=== PATIENT | female | born 1935 | race Caucasian/White ===

== ENCOUNTER 2018-10-29 08:27 | Inpatient (IN) | payer MEDICARE, OTHER ==
[~2018-10-29] VITALS: Ht 157.5 cm; Wt 54.0 kg
[2018-10-29] MEDS ORDERED: normal saline 1000ML IV soln IVB ONE (08:30)
--- NOTE | 2018-10-29 08:58 | NUR ---
PATIENT STATES SHE HAS MANY ANTIBIOTIC ALLERGIES BUT DOES NOT KNOW THE NAMES OF ANY OF THEM.
[2018-10-29 09:28] LABS: BASOPHILS % (AUTO) 0.3 % (0-1); EOSINOPHILS % (AUTO) 0 % (0-6); HEMATOCRIT 36.2 % (35.0-45.0); HEMOGLOBIN 11.8 g/dl (12.0-16.0); LYMPHOCYTES # (AUTO) 0.4 X10'3 (1.1-4.8); LYMPHOCYTES % (AUTO) 3.7 % (21-51); MEAN CORPUSCULAR HEMOGLOBIN 27.6 PG (27.0-31.0); MEAN CORPUSCULAR HGB CONC 32.6 g/dL (33.0-36.5); MEAN CORPUSCULAR VOLUME 84.6 FL (78-98); MEAN PLATELET VOLUME 7.5 FL (7.4-10.4); MONOCYTES # (AUTO) 0.2 X10'3 (0-0.9); MONOCYTES % (AUTO) 1.7 % (2-12); NEUTROPHILS # (AUTO) 10.9 X10'3 (1.8-7.7); NEUTROPHILS % (AUTO) 94.3 % (42-75); PLATELET COUNT 204 X10'3 (140-440); RED BLOOD COUNT 4.27 X10'6 (4.20-5.60); RED CELL DISTRIBUTION WIDTH 13.5 % (11.5-14.5); WHITE BLOOD COUNT 11.5 X10'3 (4.5-11.0)
[2018-10-29 09:43] LABS: ALANINE AMINOTRANSFERASE 14 U/L (12-78); ALBUMIN 2.5 G/DL (3.4-5.0); ALBUMIN/GLOBULIN RATIO 0.8 (1.1-1.5); ALKALINE PHOSPHATASE 52 IU/L (46-116); ANION GAP 7 (8-16); ASPARTATE AMINO TRANSFERASE 12 U/L (10-37); BILIRUBIN,TOTAL 0.2 MG/DL (0.1-1.0); BLOOD UREA NITROGEN 46 MG/DL (7-18); BUN/CREATININE RATIO 32.9 (6.6-38.0); CALCIUM 8.1 MG/DL (8.5-10.1); CHLORIDE 108 MMOL/L (99-107); GLUCOSE 163 MG/DL (70-104); POTASSIUM 4.4 MMOL/L (3.5-5.1); SODIUM 139 MMOL/L (135-145); TOTAL CARBON DIOXIDE 24.5 MMOL/L (24-32); TOTAL PROTEIN 5.5 G/DL (6.4-8.2); eGFR 36 ML/MIN
[2018-10-29] MEDS ORDERED: piperacillin/tazo 3.375gm/50ml 50 ML IV ONE (10:20)
[2018-10-29] MEDS: HYDROcodone/acetaminophen 5mg/325mg tablet PO ONE ×2 (10:20→12:20)
--- NOTE | 2018-10-29 11:00 | NUR ---
pt allergies updated per pt pharmacy records. zosyn non-admined per dr georges.
--- NOTE | 2018-10-29 11:36 | NUR ---
PT REFUSES PAIN MEDS AT THIS TIME
[2018-10-29] MEDS ORDERED: LOSA25TA96 PO ×2 (11:48)
[2018-10-29] MEDS ORDERED: mag hydrox/Alum hydrox/simeth 30ml oral suspension PO PRN (11:50)
[2018-10-29] MEDS ORDERED: magnesium 2GM in 50ml NS 50 ML IV PRN (11:50)
[2018-10-29] MEDS ORDERED: acetaminophen 325mg tablet PO PRN (11:50)
[2018-10-29] MEDS ORDERED: magnesium Cl slow-release 64mg tablet PO PRN (11:50)
[2018-10-29] MEDS ORDERED: potassium Cl 20 mEq SR tablet PO PRN (11:50)
[2018-10-29] MEDS ORDERED: potassium Cl 40MEQ/NS 500ml 500 ML IV PRN ×2 (11:50)
[2018-10-29] MEDS ORDERED: ondansetron/PF 4mg/2ml inj IV PRN (11:50)
[2018-10-29] MEDS ORDERED: magnesium hydroxide 30ml (MOM) UD suspension PO PRN (11:50)
[2018-10-29] MEDS ORDERED: magnesium 4gm in 100ml NS 100 ML IV PRN (11:50)
[2018-10-29] MEDS ORDERED: PEG 3350/Na sulf,bicarb,Cl/KCl oral sol 4 liter bottle PO ONE (12:10)
[2018-10-29] MEDS: normal saline 1000ml 1,000 ML IV SCH (12:45)
[2018-10-29] MEDS ORDERED: HYDROcodone/acetaminophen 5mg/325mg tablet PO ONE (12:45)
[2018-10-29 12:51] LABS: OCCULT BLOOD STOOL POSITIVE (Neg)
--- NOTE | 2018-10-29 14:10 | NUR ---
Received report from Cheri PICKERING. Patient arrived to room 356B.
--- NOTE | 2018-10-29 15:07 | NUR ---
paged regarding high BP of 185/68. Awaiting call back.
[2018-10-29 15:41] VITALS: BP 185/68
[2018-10-29] MEDS ORDERED: pneumococcal 23-VAL P-sac vacc 25 mcg/0.5ml vial IMVAC ONE (16:00)
[2018-10-29 16:30] LABS: BASOPHILS % (AUTO) 0.1 % (0-1); EOSINOPHILS % (AUTO) 0 % (0-6); HEMATOCRIT 35.6 % (35.0-45.0); HEMOGLOBIN 11.6 g/dl (12.0-16.0); LYMPHOCYTES # (AUTO) 0.7 X10'3 (1.1-4.8); LYMPHOCYTES % (AUTO) 6.3 % (21-51); MEAN CORPUSCULAR HEMOGLOBIN 27.3 PG (27.0-31.0); MEAN CORPUSCULAR HGB CONC 32.5 g/dL (33.0-36.5); MEAN CORPUSCULAR VOLUME 84.1 FL (78-98); MEAN PLATELET VOLUME 8.1 FL (7.4-10.4); MONOCYTES # (AUTO) 0.8 X10'3 (0-0.9); MONOCYTES % (AUTO) 6.8 % (2-12); NEUTROPHILS # (AUTO) 10.2 X10'3 (1.8-7.7); NEUTROPHILS % (AUTO) 86.8 % (42-75); PLATELET COUNT 220 X10'3 (140-440); RED BLOOD COUNT 4.23 X10'6 (4.20-5.60); RED CELL DISTRIBUTION WIDTH 13.7 % (11.5-14.5); WHITE BLOOD COUNT 11.8 X10'3 (4.5-11.0)
[2018-10-29 16:47] VITALS: BP 163/81
[2018-10-29 18:00] VITALS: BP 177/74
--- NOTE | 2018-10-29 18:18 | NUR ---
Patient in room [facility] 356B. I have received report from RAHEEL Damon and had the opportunity to ask questions and assume patient care. In no apparent distress, resting comfortably on room air. Call light and items of frequent use within reach. Will continue to monitor.
--- NOTE | 2018-10-29 18:30 | NUR ---
Problems reprioritized. Patient report given, questions answered & plan of care reviewed with Marybeth PICKERING.
[2018-10-29] MEDS: losartan 25mg tablet PO SCH (20:05)
[2018-10-30] VITALS (9 sets, daily range): BP systolic 128–165; BP diastolic 58–76
[2018-10-30 06:16] LABS: BASOPHILS % (AUTO) 0 % (0-1); EOSINOPHILS % (AUTO) 0 % (0-6); HEMATOCRIT 32.9 % (35.0-45.0); HEMOGLOBIN 10.6 g/dl (12.0-16.0); LYMPHOCYTES # (AUTO) 0.8 X10'3 (1.1-4.8); LYMPHOCYTES % (AUTO) 4.3 % (21-51); MEAN CORPUSCULAR HEMOGLOBIN 27.2 PG (27.0-31.0); MEAN CORPUSCULAR HGB CONC 32.2 g/dL (33.0-36.5); MEAN CORPUSCULAR VOLUME 84.6 FL (78-98); MEAN PLATELET VOLUME 8.3 FL (7.4-10.4); MONOCYTES # (AUTO) 0.8 X10'3 (0-0.9); MONOCYTES % (AUTO) 4.3 % (2-12); NEUTROPHILS # (AUTO) 16.4 X10'3 (1.8-7.7); NEUTROPHILS % (AUTO) 91.4 % (42-75); PLATELET COUNT 211 X10'3 (140-440); RED BLOOD COUNT 3.89 X10'6 (4.20-5.60); RED CELL DISTRIBUTION WIDTH 14.1 % (11.5-14.5)
--- NOTE | 2018-10-30 06:30 | NUR ---
Problems reprioritized. Patient report given, questions answered & plan of care reviewed with RAHEEL Villanueva.
[2018-10-30 06:48] LABS: ALANINE AMINOTRANSFERASE 14 U/L (12-78); ALBUMIN 2.7 G/DL (3.4-5.0); ALBUMIN/GLOBULIN RATIO 0.9 (1.1-1.5); ALKALINE PHOSPHATASE 57 IU/L (46-116); ANION GAP 10 (8-16); ASPARTATE AMINO TRANSFERASE 16 U/L (10-37); BILIRUBIN,TOTAL 0.4 MG/DL (0.1-1.0); BLOOD UREA NITROGEN 43 MG/DL (7-18); BUN/CREATININE RATIO 33.3 (6.6-38.0); CALCIUM 8.3 MG/DL (8.5-10.1); CHLORIDE 103 MMOL/L (99-107); CREATININE 1.29 MG/DL (0.40-0.90); GLUCOSE 125 MG/DL (70-104); MAGNESIUM 1.8 MG/DL (1.5-2.4); POTASSIUM 3.2 MMOL/L (3.5-5.1); SODIUM 137 MMOL/L (135-145); TOTAL CARBON DIOXIDE 23.6 MMOL/L (24-32); TOTAL PROTEIN 5.8 G/DL (6.4-8.2); eGFR 40 ML/MIN
[2018-10-30] MEDS: K and/or MAG REPLACEMENT MC SCH (08:00)
[2018-10-30] MEDS: potassium Cl 20 mEq SR tablet PO PRN ×2 (09:00→20:19)
[2018-10-30] MEDS: losartan 25mg tablet PO SCH ×2 (09:00→20:19)
[2018-10-30 09:02] LABS: BASOPHILS % (AUTO) 0.1 % (0-1); EOSINOPHILS % (AUTO) 0.1 % (0-6); HEMATOCRIT 32.3 % (35.0-45.0); HEMOGLOBIN 10.4 g/dl (12.0-16.0); LYMPHOCYTES # (AUTO) 1.3 X10'3 (1.1-4.8); LYMPHOCYTES % (AUTO) 6.9 % (21-51); MEAN CORPUSCULAR HEMOGLOBIN 27.1 PG (27.0-31.0); MEAN CORPUSCULAR HGB CONC 32.2 g/dL (33.0-36.5); MEAN PLATELET VOLUME 8.3 FL (7.4-10.4); MONOCYTES % (AUTO) 5.1 % (2-12); NEUTROPHILS # (AUTO) 16.4 X10'3 (1.8-7.7); NEUTROPHILS % (AUTO) 87.8 % (42-75); PLATELET COUNT 208 X10'3 (140-440); RED BLOOD COUNT 3.84 X10'6 (4.20-5.60); WHITE BLOOD COUNT 18.7 X10'3 (4.5-11.0)
[2018-10-30] MEDS ORDERED: levoFLOXACIN-Levaquin 500mg/D5 100 ML IV SCH (13:00)
--- NOTE | 2018-10-30 15:04 | NUR ---
Malnutrition Consult: Pt admit w/ bloody stool hx diverticulitis and colon CA w/ rectosigmoid anastomosis per EMR. Pt has abdominal wall hernia containing loop of small bowel but to be fixed as outpatient per MD note. CT reveals colonic diverticulum w/o diverticulitis and hepatic cysts. Pt seen by STUART at bedside and reports UBW 151# in May currently 119# per gurnery scale; 21% UBW loss 5 months severe. Pt reports decreased PO likely r/t hernia. Pt has visible orbital/temporal muscle/fat wasting. Pt s/p golytely preparing for colonoscopy tomorrow. PO 75% avg first clear liquids meals but pt reports no desire to eat following Golytely. At this time pt qualifies for severe malnutrition; MD notified. Will monitor for ONS needs as diet advances pending colonoscopy results. Rec: 1. advance diet per MD to low-residue 2. monitor for ONS needs 3. weekly wts Addendum: 10/30/18 at [address] Amended: Links added.
[2018-10-30] MEDS ORDERED: fentaNYL/PF 50MCG/1 ML 2ML syringe ONE (15:32)
[2018-10-30] MEDS ORDERED: MIDAZolam 5mg/5ml vial ONE (15:32)
[2018-10-30 20:31] LABS: BASOPHILS # (AUTO) 0.1 X10'3 (0-0.2); BASOPHILS % (AUTO) 0.4 % (0-1); EOSINOPHILS % (AUTO) 0.1 % (0-6); HEMATOCRIT 31.3 % (35.0-45.0); LYMPHOCYTES # (AUTO) 1.5 X10'3 (1.1-4.8); LYMPHOCYTES % (AUTO) 8.8 % (21-51); MEAN CORPUSCULAR HEMOGLOBIN 27.2 PG (27.0-31.0); MEAN CORPUSCULAR HGB CONC 32.1 g/dL (33.0-36.5); MEAN CORPUSCULAR VOLUME 84.7 FL (78-98); MEAN PLATELET VOLUME 8.1 FL (7.4-10.4); MONOCYTES # (AUTO) 0.9 X10'3 (0-0.9); MONOCYTES % (AUTO) 5.5 % (2-12); NEUTROPHILS # (AUTO) 14.5 X10'3 (1.8-7.7); NEUTROPHILS % (AUTO) 85.2 % (42-75); PLATELET COUNT 177 X10'3 (140-440); RED BLOOD COUNT 3.69 X10'6 (4.20-5.60); RED CELL DISTRIBUTION WIDTH 14.1 % (11.5-14.5); WHITE BLOOD COUNT 17.1 X10'3 (4.5-11.0)
[2018-10-30 22:54] LABS: BASOPHILS % (AUTO) 0.2 % (0-1); EOSINOPHILS % (AUTO) 0.1 % (0-6); HEMATOCRIT 30.2 % (35.0-45.0); HEMOGLOBIN 9.9 g/dl (12.0-16.0); LYMPHOCYTES # (AUTO) 1.5 X10'3 (1.1-4.8); LYMPHOCYTES % (AUTO) 8.4 % (21-51); MEAN CORPUSCULAR HEMOGLOBIN 27.5 PG (27.0-31.0); MEAN CORPUSCULAR HGB CONC 32.7 g/dL (33.0-36.5); MEAN PLATELET VOLUME 7.4 FL (7.4-10.4); MONOCYTES # (AUTO) 1.1 X10'3 (0-0.9); MONOCYTES % (AUTO) 5.9 % (2-12); NEUTROPHILS # (AUTO) 15.7 X10'3 (1.8-7.7); NEUTROPHILS % (AUTO) 85.4 % (42-75); PLATELET COUNT 193 X10'3 (140-440); RED CELL DISTRIBUTION WIDTH 13.8 % (11.5-14.5); WHITE BLOOD COUNT 18.4 X10'3 (4.5-11.0)
--- NOTE | 2018-10-30 23:24 | NUR ---
Patient in room [facility] 356. I have received report from RAHEEL Villanueva and had the opportunity to ask questions and assume patient care. Addendum: 10/30/18 at 4595 by Nevin Bell RN Amended: Links added.
[2018-10-31 00:09] VITALS: BP 132/58
[2018-10-31 05:57] LABS: BASOPHILS % (AUTO) 0.1 % (0-1); EOSINOPHILS % (AUTO) 0.3 % (0-6); HEMATOCRIT 31.5 % (35.0-45.0); HEMOGLOBIN 10.2 g/dl (12.0-16.0); LYMPHOCYTES # (AUTO) 1.8 X10'3 (1.1-4.8); LYMPHOCYTES % (AUTO) 10.8 % (21-51); MEAN CORPUSCULAR HEMOGLOBIN 27.4 PG (27.0-31.0); MEAN CORPUSCULAR HGB CONC 32.4 g/dL (33.0-36.5); MEAN CORPUSCULAR VOLUME 84.5 FL (78-98); MEAN PLATELET VOLUME 8.1 FL (7.4-10.4); MONOCYTES # (AUTO) 0.9 X10'3 (0-0.9); MONOCYTES % (AUTO) 5.1 % (2-12); NEUTROPHILS # (AUTO) 13.9 X10'3 (1.8-7.7); NEUTROPHILS % (AUTO) 83.7 % (42-75); PLATELET COUNT 200 X10'3 (140-440); RED BLOOD COUNT 3.73 X10'6 (4.20-5.60); RED CELL DISTRIBUTION WIDTH 13.9 % (11.5-14.5); WHITE BLOOD COUNT 16.6 X10'3 (4.5-11.0)
--- NOTE | 2018-10-31 06:10 | NUR ---
Problems reprioritized. Patient report given, questions answered & plan of care reviewed with RHAEEL Villanueva. Addendum: 10/31/18 at 0611 by Nevin Bell RN Amended: Links added.
[2018-10-31 06:12] LABS: ALANINE AMINOTRANSFERASE 14 U/L (12-78); ALBUMIN 2.4 G/DL (3.4-5.0); ALBUMIN/GLOBULIN RATIO 0.8 (1.1-1.5); ALKALINE PHOSPHATASE 58 IU/L (46-116); ANION GAP 10 (8-16); ASPARTATE AMINO TRANSFERASE 15 U/L (10-37); BILIRUBIN,TOTAL 0.5 MG/DL (0.1-1.0); BLOOD UREA NITROGEN 23 MG/DL (7-18); BUN/CREATININE RATIO 21.7 (6.6-38.0); CALCIUM 8.4 MG/DL (8.5-10.1); CHLORIDE 108 MMOL/L (99-107); CREATININE 1.06 MG/DL (0.40-0.90); GLUCOSE 71 MG/DL (70-104); MAGNESIUM 1.7 MG/DL (1.5-2.4); POTASSIUM 3.5 MMOL/L (3.5-5.1); SODIUM 141 MMOL/L (135-145); TOTAL CARBON DIOXIDE 23.2 MMOL/L (24-32); TOTAL PROTEIN 5.5 G/DL (6.4-8.2); eGFR 50 ML/MIN
[2018-10-31 07:00] VITALS: BP 141/50
[2018-10-31] MEDS: K and/or MAG REPLACEMENT MC SCH (08:00)
[2018-10-31] MEDS: losartan 25mg tablet PO SCH (08:29)
[2018-10-31 08:37] LABS: BASOPHILS # (AUTO) 0.1 X10'3 (0-0.2); BASOPHILS % (AUTO) 0.4 % (0-1); EOSINOPHILS % (AUTO) 0.2 % (0-6); HEMATOCRIT 29.7 % (35.0-45.0); HEMOGLOBIN 9.6 g/dl (12.0-16.0); LYMPHOCYTES # (AUTO) 1.3 X10'3 (1.1-4.8); LYMPHOCYTES % (AUTO) 10.1 % (21-51); MEAN CORPUSCULAR HEMOGLOBIN 27.4 PG (27.0-31.0); MEAN CORPUSCULAR HGB CONC 32.3 g/dL (33.0-36.5); MEAN CORPUSCULAR VOLUME 84.9 FL (78-98); MEAN PLATELET VOLUME 7.5 FL (7.4-10.4); MONOCYTES # (AUTO) 0.7 X10'3 (0-0.9); MONOCYTES % (AUTO) 5.3 % (2-12); PLATELET COUNT 168 X10'3 (140-440)
[2018-10-31] MEDS ORDERED: LOSA25TA41 PO (10:48)
[2018-10-31] MEDS: normal saline 1000ml 1,000 ML IV SCH (11:33)
--- NOTE | 2018-10-31 12:00 | NUR ---
PT states that she understands all DC instructions and will follow up at directed with PCP and Dr. Connolly. IV was removed canula intact, pt tolerated well. PT safely wheeled to sisters car by volunteer.
[2018-10-31] MEDS ORDERED: levoFLOXACIN-Levaquin 250mg/D5 50 ML IV SCH (13:00)
== END 2018-10-31 12:06 | disposition home or self-care (01) | DRG 393 ==
LOC: ER 08:28 → SUR 3N 14:15 → CMPBEDREQ 10-30 19:34
PROVIDERS: ADMIT Internal Medicine; ATTEND Family Medicine
PROC: 3E0234Z Introduction of Serum, Toxoid and Vaccine into Muscle, Percutaneous Approach (ICD-10-PCS; 2018-10-29)
PROC: 0DJD8ZZ Inspection of Lower Intestinal Tract, Via Natural or Artificial Opening Endoscopic (ICD-10-PCS; principal; 2018-10-30)
DX: K64.8 Other hemorrhoids (principal); E43 Unspecified severe protein-calorie malnutrition; K43.0 Incisional hernia with obstruction, without gangrene; N17.9 Acute kidney failure, unspecified; R18.8 Other ascites; K57.30 Diverticulosis of large intestine without perforation or abscess without bleeding; I10 Essential (primary) hypertension; E87.6 Hypokalemia; E86.0 Dehydration; Z68.21 Body mass index [BMI] 21.0-21.9, adult; Z88.1 Allergy status to other antibiotic agents; Z88.0 Allergy status to penicillin; Z88.2 Allergy status to sulfonamides; Z88.8 Allergy status to other drugs, medicaments and biological substances; Z85.038 Personal history of other malignant neoplasm of large intestine; Z90.49 Acquired absence of other specified parts of digestive tract; Z23 Encounter for immunization; D64.9 Anemia, unspecified
CPT/HCPCS: 36415; 45378; 74176; 80053; 82272; 83605; 83735; 84145; 85025; 85610; 87070; 90732; 96360; 99152; 99153; 99285; A4620; G0378; J1956; J2250; J3010; J7030

== ENCOUNTER 2018-11-14 12:49 | Inpatient (IN) | payer MEDICARE, OTHER ==
[2018-11-14] VITALS (17 sets, daily range): BP systolic 107–185; BP diastolic 53–89
[~2018-11-14] VITALS: Ht 157.5 cm; Wt 53.1 kg
[~2018-11-14 12:49] MED LIST: LOSA25TA96 PO
[2018-11-14] MEDS ORDERED: CLINDAmcin 900mg/NS 50ml IVPB 50 ML IV ONE (14:00)
[2018-11-14] MEDS ORDERED: famotidine 20mg tablet PO ONE (14:00)
[2018-11-14] MEDS ORDERED: ringers solution, lacted 1,000 ML IV SCH ×2 (14:00→17:05)
[2018-11-14 14:26] LABS: BASOPHILS % (AUTO) 0.5 % (0-1); EOSINOPHILS % (AUTO) 0.8 % (0-6); LYMPHOCYTES # (AUTO) 0.9 X10'3 (1.1-4.8); LYMPHOCYTES % (AUTO) 19.9 % (21-51); MEAN CORPUSCULAR HEMOGLOBIN 27.4 PG (27.0-31.0); MEAN CORPUSCULAR HGB CONC 32.7 g/dL (33.0-36.5); MEAN CORPUSCULAR VOLUME 83.8 FL (78-98); MEAN PLATELET VOLUME 6.9 FL (7.4-10.4); MONOCYTES # (AUTO) 0.3 X10'3 (0-0.9); MONOCYTES % (AUTO) 6.7 % (2-12); NEUTROPHILS # (AUTO) 3.2 X10'3 (1.8-7.7); NEUTROPHILS % (AUTO) 72.1 % (42-75); PRE OP HEMATOCRIT 28.8 % (35.0-45.0); PRE OP PLATELET COUNT 197 X10'3 (140-440); RED BLOOD COUNT 3.44 X10'6 (4.20-5.60); RED CELL DISTRIBUTION WIDTH 14.2 % (11.5-14.5)
[2018-11-14 14:29] LABS: PRE OP HEMOGLOBIN 9.4 g/dL (12.0-16.0)
[2018-11-14 14:32] LABS: ALBUMIN 2.7 G/DL (3.4-5.0); ALBUMIN/GLOBULIN RATIO 0.9 (1.1-1.5); ALKALINE PHOSPHATASE 51 IU/L (46-116); BLOOD UREA NITROGEN 21 MG/DL (7-18); BUN/CREATININE RATIO 17.9 (6.6-38.0); CALCIUM 8.7 MG/DL (8.5-10.1); CHLORIDE 110 MMOL/L (99-107); CREATININE 1.17 MG/DL (0.40-0.90); PRE OP ALT 14 U/L (30-65); PRE OP ANION GAP 6 (8-16); PRE OP AST 13 U/L (10-37); PRE OP BILIRUB, TOTAL 0.3 MG/DL (0.0-1.0); PRE OP GLUCOSE 87 MG/DL (70-104); PRE OP POTASSIUM 4.1 MMOL/L (3.4-5.1); PRE OP SODIUM 143 MMOL/L (135-145); TOTAL CARBON DIOXIDE 27.1 MMOL/L (24-32); TOTAL PROTEIN 5.6 G/DL (6.4-8.2); eGFR 44 ML/MIN
[2018-11-14] MEDS ORDERED: LIDOcaine 1% 30ml preserv. free vial ONE (14:42)
[2018-11-14] MEDS ORDERED: BUPIVAcaine/PF 2.5 mg/ml (0.25%) 30ml vial ONE (14:42)
[2018-11-14] MEDS ORDERED: ROPIVAcaine 0.5% (5mg/ml) 30ml vial ONE (15:25)
[2018-11-14] MEDS ORDERED: ketorolac trometh. 30mg/ml inj. ONE (15:25)
[2018-11-14] MEDS ORDERED: rocuronium 10mg/ml inj IV ONE ×2 (15:36→16:23)
[2018-11-14] MEDS ORDERED: LIDOcaine 2% (20mg/ml) 5ml vial ONE ×2 (15:36→16:23)
[2018-11-14] MEDS ORDERED: propofol inj 20 ML IV ONE ×2 (15:36→16:23)
[2018-11-14] MEDS ORDERED: fentaNYL/PF 50MCG/1 ML 2ML syringe ONE (15:37)
[2018-11-14] MEDS ORDERED: sevoflurane 250ml liquid IH ONE (15:41)
[2018-11-14] MEDS ORDERED: neostigmine methylsulfate 1 MG/ML 10ml vial ONE (16:23)
[2018-11-14] MEDS ORDERED: glycopyrrolate 0.2mg/ml inj ONE (16:23)
[2018-11-14] MEDS ORDERED: dexamethasone sod phosphate 4mg/ml inj. ONE (16:24)
[2018-11-14] MEDS ORDERED: ePHEDrine 50MG/ML INJ. ONE (16:24)
[2018-11-14] MEDS ORDERED: ondansetron/PF 4mg/2ml inj ONE (16:24)
[2018-11-14] MEDS ORDERED: metoprolol tartrate 1mg/ml inj IV ONE (16:24)
[2018-11-14] MEDS ORDERED: ondansetron/PF 4mg/2ml inj IV PRN ×2 (16:50→17:05)
[2018-11-14] MEDS ORDERED: HYDROcodone/acetaminophen 5mg/325mg tablet PO PRN (16:50)
[2018-11-14] MEDS ORDERED: naloxone 0.4 mg/ml inj ONE (16:53)
--- NOTE | 2018-11-14 17:00 | NUR ---
Received from OR via [facility], accompanied by Anesthesiologist CHANNING and report given by Anesthesiolgist. PT SLEEPY OXYGENATING WELL ON 10 LPM O2 VIA MASK, NO RESP DISTRESS NOTED. PT DENIES NAUSEA OR PAIN AT THIS TIME. [place] DSG TO ABD, CDI. NO BURDEN, SCDS ON. VSS.
[2018-11-14] MEDS ORDERED: HYDROmorphone inj. 0.5 MG/0.5 ML DISP.SYRIN IV PRN (17:05)
[2018-11-14] MEDS ORDERED: labetalol 20mg/4ml (5mg/ml) syringe IV ONE (17:30)
[2018-11-14] MEDS: HYDROcodone/acetaminophen 10/325mg tab PO PRN (17:42)
--- NOTE | 2018-11-14 17:50 | NUR ---
Report called to receiving nurse. Transferred via [place] [facility] WITH PT FAMILY. PAIN LEVEL TRENDING DOWN AFTER MEDS GIVEN, NORCO 10/325 GIVEN. VSS, LABETALOL GIVEN. SBP>180 NOW. TOLERATING ICE CHIPS AND PO FLUIDS. TRANSFERRED TO 3 SURG IN STABLE CONDITION. Special Issues communicated to receiving nurse.
--- NOTE | 2018-11-14 18:08 | NUR ---
Patient in room [facility] 346. I have received report from Dottie PICKERING and had the opportunity to ask questions and assume patient care.
--- NOTE | 2018-11-14 18:40 | NUR ---
Patient in room [facility] 346. I have received report from Freda Laughlin and had the opportunity to ask questions and assume patient care.
--- NOTE | 2018-11-14 18:42 | NUR ---
Problems reprioritized. Patient report given, questions answered & plan of care reviewed with Dottie PICKERING.
[2018-11-14] MEDS: Potassium Cl inj 20 MEQ in ringers solution, lacted 1,000 ML IV SCH (19:45)
[2018-11-14] MEDS: heparin, porcine 5000 units/ml vial SQ SCH (19:49)
[2018-11-15] VITALS: BP 112/57
[2018-11-15 04:00] VITALS: BP 127/48
[2018-11-15] MEDS: Potassium Cl inj 20 MEQ in ringers solution, lacted 1,000 ML IV SCH ×2 (06:16→09:36)
--- NOTE | 2018-11-15 06:36 | NUR ---
Patient in room [facility] 346. I have received report from Tay Laughlin and had the opportunity to ask questions and assume patient care.
--- NOTE | 2018-11-15 06:37 | NUR ---
Patient in room [facility] 346. I have received report from Dottie PICKERING and had the opportunity to ask questions and assume patient care.
--- NOTE | 2018-11-15 06:39 | NUR ---
Problems reprioritized. Patient report given, questions answered & plan of care reviewed with Tay Laughlin.
[2018-11-15 07:00] VITALS: BP 135/51
[2018-11-15] MEDS: heparin, porcine 5000 units/ml vial SQ SCH (07:55)
[2018-11-15] MEDS ORDERED: losartan 25mg tablet PO SCH (08:00)
[2018-11-15] MEDS: HYDROcodone/acetaminophen 10/325mg tab PO PRN (09:36)
[2018-11-15 11:00] VITALS: BP 125/36
[2018-11-15] MEDS ORDERED: HYDR-3972 PO (11:25)
--- NOTE | 2018-11-15 12:50 | NUR ---
Discharge instructions given to patient, patient's sister present at bedside. Patient verbalized understanding of all instructions given. Peripheral IV catheter removed, tip intact. New prescriptions delivered at bedside by [facility] pharmacy. Instructed patient to ensure she has all her belongings before leaving
== END 2018-11-15 12:50 | disposition home or self-care (01) | DRG 355 ==
LOC: PAS 12:49 → SUR 3N 16:48 → OBSVTOIN 16:48
PROVIDERS: ADMIT Surgery; ATTEND Surgery
PROC: 0WUF0JZ Supplement Abdominal Wall with Synthetic Substitute, Open Approach (ICD-10-PCS; principal; 2018-11-14 15:41)
DX: K43.0 Incisional hernia with obstruction, without gangrene (principal); I10 Essential (primary) hypertension; Z88.5 Allergy status to narcotic agent; Z88.0 Allergy status to penicillin; Z88.2 Allergy status to sulfonamides; Z88.8 Allergy status to other drugs, medicaments and biological substances; Z87.891 Personal history of nicotine dependence; Z91.013 Allergy to seafood; Z90.49 Acquired absence of other specified parts of digestive tract; Z79.899 Other long term (current) drug therapy
CPT/HCPCS: 36415; 80053; 82948; 85025; 93005; A7000; G0378; J1100; J1170; J1644; J1885; J2001; J2310; J2405; J2704; J2710; J2795; J3010; J3480; J3490; J7120